=== PATIENT | male | born 1975 | race African-American/Black ===

== ENCOUNTER 2018-01-13 17:51 | Inpatient (IN) ==
[2018-01-13] MEDS ORDERED: ASPIRIN 325 MG TABLET PO STA (18:20)
[2018-01-13] MEDS ORDERED: NITROGLYCERIN 2% OINT 1 INCH/GM PACK TOP STA (18:20)
[2018-01-13] MEDS ORDERED: ALUM/MAG/SIMETH/LIDO VISC 1:1 30 ML BOTTLE PO STA (18:20)
[2018-01-13] MEDS ORDERED: MORPHINE 4 MG/1 ML VIAL IV STA (18:20)
[2018-01-13] MEDS ORDERED: ENOXAPARIN 100 MG/ML SYRINGE SUBCUT STA (18:20)
[2018-01-13] MEDS ORDERED: METOPROLOL TARTRATE 25 MG TABLET PO STA (18:20)
[2018-01-13] MEDS ORDERED: ONDANSETRON 4 MG/2 ML VIAL IV STA (18:20)
[2018-01-13 18:50] LABS: Basophils % 0.3 % (0.0-0.8); Eosinophils % 0.4 % (0.00-10.9); Hematocrit 36.3 VOL% (42.0-52.0); Hemoglobin 12.7 GM/DL (14.0-18.0); Immature Granulocytes % 0.4 %; Immature Granulocytes Absolute 0.03 #; Lymphocytes # 1.6 10*3/uL (1.4-4.0); Lymphocytes % 20.7 % (21.2-54.2); Mean Corpuscular Hemoglobin 32 PG (27-34); Mean Corpuscular Volume 90.5 FL (87-102); Mean Platelet Volume 9.6 FL (9.6-12.0); Monocytes # 0.7 10*3/uL (0.11-0.8); Monocytes % 8.7 % (1.7-12.7); Neutrophils # 5.5 10*3/uL (1.4-7.4); Neutrophils % 69.5 % (38.7-73.9); Platelet Count 231 T/CUMM (130-400); Red Blood Count 4.01 MC/CUMM (3.8-5.5); Red Cell Distribution Width 12.2 % (9.3-17.3); White Blood Count 7.9 T/CUMM (4-12)
[2018-01-13 19:00] LABS: INR 1.1
[2018-01-13 19:11] LABS: Alanine Aminotransferase 13 U/L (16-61); Albumin 2.7 G/DL (3.4-5.0); Alkaline Phosphatase 107 U/L (45-117); Aspartate Amino Transferase 16 U/L (0-37); Calcium 8.8 MG/DL (8.5-10.1); Total Protein 8.2 G/DL (6.4-8.3)
[2018-01-13 19:12] LABS: Blood Urea Nitrogen 10 MG/DL (7-18); Glucose 95 MG/DL (74-106); Osmolality,Calculated 258.8 MOS/KG (273-304); Potassium 3.5 MMOL/L (3.5-5.1); Sodium 130 MMOL/L (136-145)
[2018-01-13] MEDS ORDERED: BISACODYL 5 MG TABLET PO PRN (21:48)
[2018-01-13] MEDS ORDERED: ZALEPLON 5 MG CAPSULE PO PRN (21:48)
[2018-01-13] MEDS ORDERED: ONDANSETRON 4 MG/2 ML VIAL IV PRN (21:48)
[2018-01-13] MEDS ORDERED: NITROGLYCERIN SL 0.4 MG TABLET SL PRN (21:50)
[2018-01-13] MEDS ORDERED: ALBUTEROL/IPRATROPIUM 3 ML NEB RESP TX PRN (21:54)
[2018-01-13] MEDS ORDERED: SODIUM CHLORIDE 0.9% 1,000 ML IV SCH (22:00)
[2018-01-13] MEDS: LEVOFLOXACIN INJ 500 MG in PREMIX 1 EACH IV SCH (22:24)
[2018-01-13] MEDS: NITROGLYCERIN 2% OINT 1 INCH/GM PACK TOP SCH (22:25)
[2018-01-13] MEDS: ENOXAPARIN 40 MG/0.4 ML SYRINGE SUBCUT SCH (22:29)
[2018-01-13] MEDS: guaiFENesin 200 MG/10 ML UDCUP PO PRN (22:54)
[2018-01-14] MEDS ORDERED: FUROSEMIDE 20 MG/2 ML VIAL IV ONE (00:30)
[2018-01-14 03:09] LABS: Calcium 8.6 MG/DL (8.5-10.1); Osmolality,Calculated 263.5 MOS/KG (273-304); Risk Ratio 2.04; Thyroid Stimulating Hormone 0.73 uIU/ml (0.358-3.74); VLDL CHOLESTEROL 12.2 MG/DL
[2018-01-14] MEDS: guaiFENesin 200 MG/10 ML UDCUP PO PRN (05:54)
[2018-01-14] MEDS: NITROGLYCERIN 2% OINT 1 INCH/GM PACK TOP SCH (08:49)
[2018-01-14] MEDS: PANTOPRAZOLE 40 MG TABLET PO SCH (08:51)
[2018-01-14 09:43] LABS: HIV Antigen/Antibody Result Nonreactive (Nonreactive)
[2018-01-14] MEDS: MORPHINE 4 MG/1 ML VIAL IV PRN (14:49)
[2018-01-14] MEDS: ENOXAPARIN 40 MG/0.4 ML SYRINGE SUBCUT SCH (21:09)
[2018-01-14] MEDS: LEVOFLOXACIN INJ 500 MG in PREMIX 1 EACH IV SCH (22:36)
[2018-01-14] MEDS: ACETAMINOPHEN 325 MG TABLET PO PRN (22:38)
[2018-01-15 05:59] LABS: Basophils % 0.5 % (0.0-0.8); Eosinophils # 0.1 10*3/uL (0.0-0.87); Eosinophils % 1.4 % (0.00-10.9); Hematocrit 36.2 VOL% (42.0-52.0); Hemoglobin 12.9 GM/DL (14.0-18.0); Immature Granulocytes % 0.5 %; Immature Granulocytes Absolute 0.03 #; Lymphocytes # 1.9 10*3/uL (1.4-4.0); Lymphocytes % 32.5 % (21.2-54.2); Mean Corpuscular HGB Conc 35.6 GM/DL (32-36); Mean Corpuscular Hemoglobin 32 PG (27-34); Mean Corpuscular Volume 88.9 FL (87-102); Mean Platelet Volume 9.8 FL (9.6-12.0); Monocytes # 0.8 10*3/uL (0.11-0.8); Monocytes % 13.4 % (1.7-12.7); Neutrophils # 3.1 10*3/uL (1.4-7.4); Neutrophils % 51.7 % (38.7-73.9); Platelet Count 260 T/CUMM (130-400); Red Blood Count 4.07 MC/CUMM (3.8-5.5); Red Cell Distribution Width 12.1 % (9.3-17.3); White Blood Count 5.9 T/CUMM (4-12)
[2018-01-15 06:30] LABS: Albumin 2.4 G/DL (3.4-5.0); Bilirubin,Total 0.6 MG/DL (0.2-1.0); Calcium 8.7 MG/DL (8.5-10.1); Osmolality,Calculated 267.2 MOS/KG (273-304); Potassium 3.8 MMOL/L (3.5-5.1); Total Protein 7.4 G/DL (6.4-8.3)
[2018-01-15] MEDS: PANTOPRAZOLE 40 MG TABLET PO SCH (09:15)
[2018-01-15] MEDS: predniSONE 20 MG TABLET PO SCH (09:15)
[2018-01-15] MEDS: MORPHINE 4 MG/1 ML VIAL IV PRN (13:36)
[2018-01-15] MEDS: ENOXAPARIN 40 MG/0.4 ML SYRINGE SUBCUT SCH (20:30)
[2018-01-15] MEDS: LEVOFLOXACIN INJ 500 MG in PREMIX 1 EACH IV SCH (22:18)
[2018-01-16 05:12] LABS: Basophils % 0.4 % (0.0-0.8); Eosinophils # 0.1 10*3/uL (0.0-0.87); Eosinophils % 0.7 % (0.00-10.9); Hematocrit 34.3 VOL% (42.0-52.0); Hemoglobin 11.8 GM/DL (14.0-18.0); Immature Granulocytes % 0.6 %; Immature Granulocytes Absolute 0.04 #; Lymphocytes # 2.1 10*3/uL (1.4-4.0); Lymphocytes % 29.8 % (21.2-54.2); Mean Corpuscular HGB Conc 34.4 GM/DL (32-36); Mean Corpuscular Hemoglobin 31 PG (27-34); Mean Platelet Volume 9.7 FL (9.6-12.0); Monocytes # 0.8 10*3/uL (0.11-0.8); Monocytes % 11.2 % (1.7-12.7); Neutrophils # 4.1 10*3/uL (1.4-7.4); Neutrophils % 57.3 % (38.7-73.9); Platelet Count 251 T/CUMM (130-400); Red Blood Count 3.77 MC/CUMM (3.8-5.5); Red Cell Distribution Width 11.9 % (9.3-17.3); White Blood Count 7.2 T/CUMM (4-12)
[2018-01-16 05:39] LABS: Albumin 2.4 G/DL (3.4-5.0); Bilirubin,Total 0.7 MG/DL (0.2-1.0); Calcium 8.7 MG/DL (8.5-10.1); Osmolality,Calculated 268.2 MOS/KG (273-304); Total Protein 7.7 G/DL (6.4-8.3)
[2018-01-16] MEDS ORDERED: ENOXAPARIN 40 MG/0.4 ML SYRINGE SUBCUT SCH (09:00)
[2018-01-16] MEDS ORDERED: diphenhydrAMINE CAP 25 MG CAPSULE PO ONE (09:47)
[2018-01-16] MEDS ORDERED: POTASSIUM CHLORIDE RIDER 10 MEQ in PREMIX 1 EACH IV PRN (09:47)
[2018-01-16] MEDS ORDERED: DIAZEPAM 5 MG TABLET PO ONE (09:47)
[2018-01-16] MEDS ORDERED: MAGNESIUM SULF RIDER 2 GM in PREMIX 1 EACH IV PRN (09:47)
[2018-01-16] MEDS: PANTOPRAZOLE 40 MG TABLET PO SCH (09:48)
[2018-01-16] MEDS: MORPHINE 4 MG/1 ML VIAL IV PRN (09:49)
[2018-01-16] MEDS: predniSONE 20 MG TABLET PO SCH (09:49)
[2018-01-16] MEDS: SODIUM CHLORIDE 0.45% 1,000 ML IV SCH ×2 (11:37→23:38)
[2018-01-16] MEDS: METOPROLOL TARTRATE 5 MG/5 ML VIAL IV SCH ×2 (13:23→20:20)
[2018-01-16] MEDS ORDERED: METOPROLOL TARTRATE 5 MG/5 ML VIAL IV SCH (18:00)
[2018-01-16] MEDS: LEVOFLOXACIN INJ 500 MG in PREMIX 1 EACH IV SCH (21:13)
[2018-01-17] MEDS: METOPROLOL TARTRATE 5 MG/5 ML VIAL IV SCH ×2 (00:32→08:09)
[2018-01-17] MEDS: MORPHINE 4 MG/1 ML VIAL IV PRN (00:33)
[2018-01-17 05:49] LABS: Basophils % 0.5 % (0.0-0.8); Eosinophils # 0.1 10*3/uL (0.0-0.87); Eosinophils % 1.2 % (0.00-10.9); Hematocrit 29.7 VOL% (42.0-52.0); Hemoglobin 10.4 GM/DL (14.0-18.0); Immature Granulocytes % 0.5 %; Immature Granulocytes Absolute 0.03 #; Lymphocytes # 1.8 10*3/uL (1.4-4.0); Lymphocytes % 27.2 % (21.2-54.2); Mean Corpuscular Hemoglobin 32 PG (27-34); Mean Corpuscular Volume 90.5 FL (87-102); Mean Platelet Volume 9.6 FL (9.6-12.0); Monocytes # 0.6 10*3/uL (0.11-0.8); Monocytes % 9.2 % (1.7-12.7); Neutrophils % 61.4 % (38.7-73.9); Platelet Count 227 T/CUMM (130-400); Red Blood Count 3.28 MC/CUMM (3.8-5.5); Red Cell Distribution Width 12.3 % (9.3-17.3); White Blood Count 6.5 T/CUMM (4-12)
[2018-01-17] MEDS ORDERED: DIAZEPAM 5 MG TABLET PO ONE (06:00)
[2018-01-17] MEDS ORDERED: diphenhydrAMINE CAP 25 MG CAPSULE PO ONE (06:00)
[2018-01-17 06:15] LABS: INR 1.2; PT Patient Result 12.5 SECS
[2018-01-17 06:25] LABS: Albumin 2.4 G/DL (3.4-5.0); Bilirubin,Total 0.4 MG/DL (0.2-1.0); Calcium 8.3 MG/DL (8.5-10.1); Osmolality,Calculated 268.1 MOS/KG (273-304); Potassium 3.6 MMOL/L (3.5-5.1); Total Protein 7.4 G/DL (6.4-8.3)
[2018-01-17 06:39] LABS: Hypochromasia 1+; Microcytosis 1+
[2018-01-17 06:40] LABS: Platelet Estimate Normal
[2018-01-17] MEDS ORDERED: HEPARIN/NACL 0.9% 2 UNITS/ML 500 ML IV ONE (09:11)
[2018-01-17] MEDS ORDERED: fentaNYL 100 MCG/2 ML VIAL ONE (09:11)
[2018-01-17] MEDS ORDERED: LIDOCAINE 1%/EPI INJ 20 ML VIAL ONE (09:11)
[2018-01-17] MEDS ORDERED: MIDAZOLAM 2 MG/2 ML VIAL ONE ×2 (09:11→09:35)
[2018-01-17] MEDS: predniSONE 20 MG TABLET PO SCH (10:36)
[2018-01-17] MEDS: PANTOPRAZOLE 40 MG TABLET PO SCH (10:37)
[2018-01-17 10:46] LABS: Total Protein 7.3 G/DL (6.4-8.3)
[2018-01-17 11:34] LABS: Basophils % 0.2 % (0.0-0.8); Eosinophils % 0.7 % (0.00-10.9); Hematocrit 32.7 VOL% (42.0-52.0); Hemoglobin 11.4 GM/DL (14.0-18.0); Immature Granulocytes % 0.3 %; Immature Granulocytes Absolute 0.02 #; Lymphocytes # 1.2 10*3/uL (1.4-4.0); Lymphocytes % 21.3 % (21.2-54.2); Mean Corpuscular HGB Conc 34.9 GM/DL (32-36); Mean Corpuscular Hemoglobin 32 PG (27-34); Mean Corpuscular Volume 91.6 FL (87-102); Mean Platelet Volume 9.6 FL (9.6-12.0); Monocytes # 0.4 10*3/uL (0.11-0.8); Monocytes % 6.6 % (1.7-12.7); Neutrophils # 4.1 10*3/uL (1.4-7.4); Neutrophils % 70.9 % (38.7-73.9); Platelet Count 218 T/CUMM (130-400); Red Blood Count 3.57 MC/CUMM (3.8-5.5); Red Cell Distribution Width 12.2 % (9.3-17.3); White Blood Count 5.7 T/CUMM (4-12)
[2018-01-17] MEDS ORDERED: FUROSEMIDE 20 MG/2 ML VIAL IV ONE (15:32)
[2018-01-17] MEDS: LEVOFLOXACIN INJ 500 MG in PREMIX 1 EACH IV SCH (21:16)
[2018-01-18 05:17] LABS: Basophils % 0.2 % (0.0-0.8); Eosinophils # 0.1 10*3/uL (0.0-0.87); Eosinophils % 0.8 % (0.00-10.9); Hematocrit 33.1 VOL% (42.0-52.0); Hemoglobin 11.8 GM/DL (14.0-18.0); Immature Granulocytes % 1.4 %; Immature Granulocytes Absolute 0.12 #; Lymphocytes # 1.5 10*3/uL (1.4-4.0); Lymphocytes % 17.5 % (21.2-54.2); Mean Corpuscular HGB Conc 35.6 GM/DL (32-36); Mean Corpuscular Hemoglobin 32 PG (27-34); Mean Corpuscular Volume 89.7 FL (87-102); Mean Platelet Volume 9.1 FL (9.6-12.0); Monocytes # 0.6 10*3/uL (0.11-0.8); Monocytes % 6.9 % (1.7-12.7); Neutrophils # 6.3 10*3/uL (1.4-7.4); Neutrophils % 73.2 % (38.7-73.9); Platelet Count 198 T/CUMM (130-400); Red Blood Count 3.69 MC/CUMM (3.8-5.5); White Blood Count 8.7 T/CUMM (4-12)
[2018-01-18 05:41] LABS: Osmolality,Calculated 273.7 MOS/KG (273-304); Potassium 3.5 MMOL/L (3.5-5.1)
[2018-01-18] MEDS: PANTOPRAZOLE 40 MG TABLET PO SCH (08:55)
[2018-01-18] MEDS: predniSONE 20 MG TABLET PO SCH (08:55)
[2018-01-18] MEDS: LEVOFLOXACIN INJ 500 MG in PREMIX 1 EACH IV SCH (22:31)
[2018-01-19 05:12] LABS: Basophils % 0.3 % (0.0-0.8); Eosinophils # 0.1 10*3/uL (0.0-0.87); Eosinophils % 1.6 % (0.00-10.9); Hematocrit 32.6 VOL% (42.0-52.0); Hemoglobin 11.8 GM/DL (14.0-18.0); Immature Granulocytes % 0.4 %; Immature Granulocytes Absolute 0.04 #; Lymphocytes % 22.1 % (21.2-54.2); Mean Corpuscular HGB Conc 36.2 GM/DL (32-36); Mean Corpuscular Hemoglobin 32 PG (27-34); Mean Corpuscular Volume 87.6 FL (87-102); Mean Platelet Volume 9.7 FL (9.6-12.0); Monocytes # 0.7 10*3/uL (0.11-0.8); Monocytes % 7.4 % (1.7-12.7); Neutrophils # 6.1 10*3/uL (1.4-7.4); Neutrophils % 68.2 % (38.7-73.9); Platelet Count 191 T/CUMM (130-400); Red Blood Count 3.72 MC/CUMM (3.8-5.5); Red Cell Distribution Width 12.6 % (9.3-17.3)
[2018-01-19 05:24] LABS: Calcium 8.2 MG/DL (8.5-10.1); Osmolality,Calculated 273.7 MOS/KG (273-304); Potassium 3.3 MMOL/L (3.5-5.1)
[2018-01-19] MEDS ORDERED: POTASSIUM CHLORIDE 20 MEQ TABLET PO ONE (07:41)
[2018-01-19] MEDS: ACETAMINOPHEN 325 MG TABLET PO PRN (09:56)
[2018-01-19] MEDS: PANTOPRAZOLE 40 MG TABLET PO SCH (09:57)
[2018-01-19] MEDS: predniSONE 20 MG TABLET PO SCH (09:57)
[2018-01-19] MEDS ORDERED: POTASSIUM CHLORIDE 20 MEQ TABLET PO PRN (14:07)
[2018-01-19] MEDS: NICOTINE 21 MG/24 HR PATCH TRANSDERM PRN (21:40)
[2018-01-19] MEDS: LEVOFLOXACIN INJ 500 MG in PREMIX 1 EACH IV SCH (21:42)
[2018-01-20] MEDS: MORPHINE 4 MG/1 ML VIAL IV PRN ×2 (04:18→20:36)
[2018-01-20 05:48] LABS: Basophils % 0.2 % (0.0-0.8); Eosinophils # 0.1 10*3/uL (0.0-0.87); Eosinophils % 1.2 % (0.00-10.9); Hematocrit 37.3 VOL% (42.0-52.0); Hemoglobin 13.2 GM/DL (14.0-18.0); Immature Granulocytes % 1.2 %; Lymphocytes # 1.8 10*3/uL (1.4-4.0); Lymphocytes % 21.6 % (21.2-54.2); Mean Corpuscular HGB Conc 35.4 GM/DL (32-36); Mean Corpuscular Hemoglobin 32 PG (27-34); Mean Corpuscular Volume 90.3 FL (87-102); Mean Platelet Volume 10.1 FL (9.6-12.0); Monocytes # 0.7 10*3/uL (0.11-0.8); Monocytes % 7.8 % (1.7-12.7); NRBC # 0.04 10*3/uL; Neutrophils # 5.7 10*3/uL (1.4-7.4); Platelet Count 128 T/CUMM (130-400); Red Blood Count 4.13 MC/CUMM (3.8-5.5); Red Cell Distribution Width 12.9 % (9.3-17.3); White Blood Count 8.3 T/CUMM (4-12)
[2018-01-20] MEDS: predniSONE 20 MG TABLET PO SCH (08:12)
[2018-01-20] MEDS: PANTOPRAZOLE 40 MG TABLET PO SCH (08:12)
[2018-01-20 08:36] LABS: Calcium 8.9 MG/DL (8.5-10.1); Potassium 3.9 MMOL/L (3.5-5.1)
[2018-01-20 18:21] LABS: QuantiFERON-Tb Gold Pl Indeterminate (Negative); TB1 Ag minus Nil Result -0.04 IU/mL; TB2 Ag Minus Result -0.02 IU/mL
[2018-01-20] MEDS: ENOXAPARIN 60 MG/0.6 ML SYRINGE SUBCUT SCH (20:38)
[2018-01-20] MEDS: NICOTINE 21 MG/24 HR PATCH TRANSDERM PRN (20:38)
[2018-01-20] MEDS: LEVOFLOXACIN INJ 500 MG in PREMIX 1 EACH IV SCH (22:24)
[2018-01-20] MEDS ORDERED: MORPHINE 4 MG/1 ML VIAL IV ONE (23:30)
[2018-01-21] MEDS ORDERED: KETOROLAC 30 MG/1 ML VIAL IV ONE (01:00)
[2018-01-21 05:49] LABS: Basophils % 0.4 % (0.0-0.8); Eosinophils % 0.4 % (0.00-10.9); Hematocrit 33.8 VOL% (42.0-52.0); Hemoglobin 11.7 GM/DL (14.0-18.0); Immature Granulocytes % 0.4 %; Immature Granulocytes Absolute 0.04 #; Lymphocytes # 1.7 10*3/uL (1.4-4.0); Lymphocytes % 17.4 % (21.2-54.2); Mean Corpuscular HGB Conc 34.6 GM/DL (32-36); Mean Corpuscular Hemoglobin 31 PG (27-34); Mean Corpuscular Volume 89.7 FL (87-102); Mean Platelet Volume 9.8 FL (9.6-12.0); Monocytes # 0.7 10*3/uL (0.11-0.8); Monocytes % 7.6 % (1.7-12.7); Neutrophils # 7.2 10*3/uL (1.4-7.4); Neutrophils % 73.8 % (38.7-73.9); Platelet Count 157 T/CUMM (130-400); Red Blood Count 3.77 MC/CUMM (3.8-5.5); Red Cell Distribution Width 12.4 % (9.3-17.3); White Blood Count 9.7 T/CUMM (4-12)
[2018-01-21 06:30] LABS: Calcium 8.4 MG/DL (8.5-10.1); Potassium 4.2 MMOL/L (3.5-5.1)
[2018-01-21] MEDS: PANTOPRAZOLE 40 MG TABLET PO SCH (08:54)
[2018-01-21] MEDS: ENOXAPARIN 60 MG/0.6 ML SYRINGE SUBCUT SCH (08:54)
[2018-01-21] MEDS: predniSONE 20 MG TABLET PO SCH (08:54)
[2018-01-21 16:30] LABS: ABG Base Excess 2.6 MMOL/L (-2.5-2.5); ABG HCO3 25.4 MMOL/L (20-26); ABG Oxygen Saturation 93.9 % (95-100); ABG PCO2 33.6 MM HG (35-48); ABG PH 7.497 (7.35-7.45); ABG PO2 73.4 MM HG (80-95); ABG TCO2 26.5 MMOL/L (23-27)
[2018-01-21] MEDS: APIXABAN 5 MG TABLET PO SCH (20:49)
[2018-01-22] MEDS: oxyCODONE/ACETAMINOPHEN 5-325 MG TABLET PO PRN ×3 (00:11→20:29)
[2018-01-22 03:51] LABS: Calcium 8.8 MG/DL (8.5-10.1); Osmolality,Calculated 267.4 MOS/KG (273-304); Potassium 3.7 MMOL/L (3.5-5.1)
[2018-01-22] MEDS: PANTOPRAZOLE 40 MG TABLET PO SCH (09:01)
[2018-01-22] MEDS: APIXABAN 5 MG TABLET PO SCH ×2 (09:01→20:29)
[2018-01-22] MEDS: predniSONE 20 MG TABLET PO SCH (09:01)
[2018-01-22] MEDS: LEVOFLOXACIN 750 MG TABLET PO SCH (09:01)
[2018-01-23] MEDS: oxyCODONE/ACETAMINOPHEN 5-325 MG TABLET PO PRN (02:50)
[2018-01-23 06:30] LABS: Cancer Antigen 19-9 2.4 U/ML (0-37); Carcinoembryonic Antigen 2.4 NG/ML (0.0-5.0)
[2018-01-23] MEDS: APIXABAN 5 MG TABLET PO SCH (08:11)
[2018-01-23] MEDS: predniSONE 20 MG TABLET PO SCH (08:11)
[2018-01-23] MEDS: PANTOPRAZOLE 40 MG TABLET PO SCH (08:11)
[2018-01-23] MEDS: LEVOFLOXACIN 750 MG TABLET PO SCH (08:11)
[2018-01-23] MEDS ORDERED: predniSONE 10 MG TABLET PO SCH (09:07)
[2018-01-23] MEDS ORDERED: KETOROLAC 10 MG TABLET PO ONE (09:07)
[2018-01-23 12:12] VITALS: BP 104/74
[2018-01-24 09:05] LABS: Immuno Free Light Chain Kappa 4.5 MG/DL (0.33-1.94); Immuno Free Light Chain Lambda 4.27 MG/DL (0.57-2.63); Immuno Free Light Chain Ratio 1.05 MG/DL (0.26-1.65)
[2018-01-25 08:31] LABS: Total Protein (Chem) 8.2 G/DL (6.4-8.3)
[2018-01-25 11:04] LABS: Albumin (SPE) 3.1 G/DL (3.2-5.3); Albumin (SPE) Rel % 37.3 %; Alpha 1 (SPE) 0.5 G/DL (0.1-0.4); Alpha 1 (SPE) Rel % 6.3 %; Alpha 2 (SPE) 1.3 G/DL (0.4-1.0); Alpha 2 (SPE) Rel % 16.1 %; Beta (SPE) 1.3 G/DL (0.5-1.1); Beta (SPE) Rel % 16.2 %
[2018-01-25 11:05] LABS: Gamma (SPE) Rel % 24.1 %
== END 2018-01-23 14:10 | disposition home or self-care (01) | DRG 180 ==
LOC: N.ED 17:51 → N.EDINP 17:51 → N.4E 21:26 → SUATTDRO 01-14 11:42 → N.TELEN 01-17 10:14
PROVIDERS: ADMIT Internal Medicine; ATTEND Hospitalist

== ENCOUNTER 2018-02-11 20:15 | Inpatient (IN) ==
[2018-02-11] MEDS ORDERED: ASPIRIN 325 MG TABLET PO STA (21:01)
[2018-02-11] MEDS ORDERED: MORPHINE 4 MG/1 ML VIAL IV STA ×2 (21:01→22:06)
[2018-02-11] MEDS ORDERED: SODIUM CHLORIDE 0.9% 1,000 ML IV STA (21:03)
[2018-02-11 21:26] LABS: Basophils % 0.4 % (0.0-0.8); Eosinophils # 0.1 10*3/uL (0.0-0.87); Eosinophils % 0.8 % (0.00-10.9); Hemoglobin 14.1 GM/DL (14.0-18.0); Immature Granulocytes % 0.3 %; Immature Granulocytes Absolute 0.03 #; Lymphocytes # 1.6 10*3/uL (1.4-4.0); Lymphocytes % 15.4 % (21.2-54.2); Mean Corpuscular HGB Conc 34.4 GM/DL (32-36); Mean Corpuscular Hemoglobin 30 PG (27-34); Mean Corpuscular Volume 86.5 FL (87-102); Mean Platelet Volume 10.6 FL (9.6-12.0); Monocytes # 0.8 10*3/uL (0.11-0.8); Monocytes % 7.9 % (1.7-12.7); Neutrophils # 7.9 10*3/uL (1.4-7.4); Neutrophils % 75.2 % (38.7-73.9); Red Blood Count 4.74 MC/CUMM (3.8-5.5); Red Cell Distribution Width 13.5 % (9.3-17.3); White Blood Count 10.4 T/CUMM (4-12)
[2018-02-11 21:27] LABS: Platelet Count 85 T/CUMM (130-400)
[2018-02-11 21:34] LABS: INR 1.2; PT Patient Result 12.8 SECS; Partial Thromboplastin Time 27.6 SECS (0-40)
[2018-02-11 21:43] LABS: Albumin 2.8 G/DL (3.4-5.0); Bilirubin,Total 1.2 MG/DL (0.2-1.0); Calcium 9.5 MG/DL (8.5-10.1); Osmolality,Calculated 268.2 MOS/KG (273-304); Potassium 4.6 MMOL/L (3.5-5.1); Total Protein 8.6 G/DL (6.4-8.3)
[2018-02-11 21:54] LABS: Platelet Estimate Decreased
[2018-02-11] MEDS ORDERED: NITROGLYCERIN SL 0.4 MG TABLET SL STA (22:03)
[2018-02-11] MEDS ORDERED: NITROGLYCERIN SL 0.4 MG TABLET SL ONE (22:04)
[2018-02-11] MEDS ORDERED: TICAGRELOR 90 MG TABLET ONE (22:04)
[2018-02-11] MEDS ORDERED: ONDANSETRON 4 MG/2 ML VIAL ONE (22:04)
[2018-02-11] MEDS ORDERED: ONDANSETRON 4 MG/2 ML VIAL IV ONE (22:06)
[2018-02-11] MEDS ORDERED: TICAGRELOR 90 MG TABLET PO ONE (22:06)
[2018-02-11] MEDS ORDERED: ACETAMINOPHEN 325 MG TABLET PO PRN (22:30)
[2018-02-11] MEDS ORDERED: ZALEPLON 5 MG CAPSULE PO PRN (22:30)
[2018-02-11] MEDS ORDERED: ONDANSETRON 4 MG/2 ML VIAL IV PRN (22:30)
[2018-02-11] MEDS ORDERED: MAGNESIUM SULF RIDER 2 GM in PREMIX 1 EACH IV PRN (22:30)
[2018-02-11] MEDS ORDERED: MAGNESIUM SULF RIDER 4 GM in PREMIX 1 EACH IV PRN (22:30)
[2018-02-11] MEDS ORDERED: HYDROmorphone 2 MG/1 ML VIAL IV PRN (22:41)
[2018-02-12] MEDS: SODIUM CHLORIDE 0.9% 1,000 ML IV SCH ×2 (00:50→18:01)
[2018-02-12] MEDS: NITROGLYCERIN 2% OINT 1 INCH/GM PACK TOP SCH ×4 (00:50→18:00)
[2018-02-12] MEDS: APIXABAN 5 MG TABLET PO SCH ×2 (08:30→21:50)
[2018-02-12] MEDS: METOPROLOL TARTRATE 25 MG TABLET PO SCH ×2 (08:30→21:50)
[2018-02-13] MEDS: NITROGLYCERIN 2% OINT 1 INCH/GM PACK TOP SCH ×4 (00:40→18:01)
[2018-02-13] MEDS: APIXABAN 5 MG TABLET PO SCH ×2 (08:43→21:22)
[2018-02-13] MEDS: DOCUSATE SODIUM 100 MG CAPSULE PO PRN (08:43)
[2018-02-13] MEDS: METOPROLOL TARTRATE 25 MG TABLET PO SCH ×2 (08:43→21:22)
[2018-02-13] MEDS: SODIUM CHLORIDE 0.9% 1,000 ML IV SCH (13:55)
[2018-02-14] MEDS: NITROGLYCERIN 2% OINT 1 INCH/GM PACK TOP SCH ×3 (00:50→12:23)
[2018-02-14] MEDS: APIXABAN 5 MG TABLET PO SCH ×2 (08:46→21:12)
[2018-02-14] MEDS: METOPROLOL TARTRATE 25 MG TABLET PO SCH ×2 (08:46→21:11)
[2018-02-14] MEDS: SODIUM CHLORIDE 0.9% 1,000 ML IV SCH ×2 (08:47→10:15)
[2018-02-14] MEDS: ISOSORBIDE MONONITRATE 30 MG TABLET PO SCH (14:14)
[2018-02-15] MEDS: SODIUM CHLORIDE 0.9% 1,000 ML IV SCH ×2 (04:24→06:13)
[2018-02-15 07:22] LABS: Calcium 8.2 MG/DL (8.5-10.1); Osmolality,Calculated 275.5 MOS/KG (273-304); Potassium 4.3 MMOL/L (3.5-5.1)
[2018-02-15 07:40] LABS: Basophils % 0.5 % (0.0-0.8); Eosinophils # 0.2 10*3/uL (0.0-0.87); Eosinophils % 3.1 % (0.00-10.9); Hematocrit 33.2 VOL% (42.0-52.0); Hemoglobin 11.5 GM/DL (14.0-18.0); Immature Granulocytes % 0.5 %; Immature Granulocytes Absolute 0.04 #; Lymphocytes # 1.7 10*3/uL (1.4-4.0); Lymphocytes % 23.2 % (21.2-54.2); Mean Corpuscular HGB Conc 34.6 GM/DL (32-36); Mean Corpuscular Hemoglobin 30 PG (27-34); Mean Corpuscular Volume 86.2 FL (87-102); Mean Platelet Volume 9.9 FL (9.6-12.0); Monocytes # 0.6 10*3/uL (0.11-0.8); Monocytes % 7.7 % (1.7-12.7); Neutrophils # 4.8 10*3/uL (1.4-7.4); Red Blood Count 3.85 MC/CUMM (3.8-5.5); Red Cell Distribution Width 13.9 % (9.3-17.3); White Blood Count 7.4 T/CUMM (4-12)
[2018-02-15 07:41] LABS: Platelet Count 86 T/CUMM (130-400)
[2018-02-15] MEDS ORDERED: METOPROLOL SUCCINATE XL 25 MG TABLET PO SCH (09:00)
[2018-02-15] MEDS: APIXABAN 5 MG TABLET PO SCH ×2 (09:02→21:27)
[2018-02-15] MEDS: ISOSORBIDE MONONITRATE 30 MG TABLET PO SCH (09:03)
[2018-02-15 10:29] LABS: Hypochromasia 2+; Polychromasia Slight
[2018-02-15] MEDS: ASPIRIN EC 81 MG TABLET PO SCH (12:11)
[2018-02-16] MEDS: SODIUM CHLORIDE 0.9% 1,000 ML IV SCH ×3 (00:41→14:42)
[2018-02-16] MEDS: DOCUSATE SODIUM 100 MG CAPSULE PO PRN (09:21)
[2018-02-16] MEDS: METOPROLOL SUCCINATE XL 50 MG TABLET PO SCH (09:21)
[2018-02-16] MEDS: APIXABAN 5 MG TABLET PO SCH ×2 (09:21→21:00)
[2018-02-16] MEDS: ISOSORBIDE MONONITRATE 30 MG TABLET PO SCH (09:21)
[2018-02-16] MEDS: ASPIRIN EC 81 MG TABLET PO SCH (09:22)
[2018-02-17 08:19] VITALS: BP 138/102
[2018-02-17] MEDS: ASPIRIN EC 81 MG TABLET PO SCH (08:27)
[2018-02-17] MEDS: DOCUSATE SODIUM 100 MG CAPSULE PO PRN (08:28)
[2018-02-17] MEDS: METOPROLOL SUCCINATE XL 50 MG TABLET PO SCH (08:28)
[2018-02-17] MEDS: ISOSORBIDE MONONITRATE 30 MG TABLET PO SCH (08:28)
[2018-02-17] MEDS: APIXABAN 5 MG TABLET PO SCH (08:28)
[2018-02-17] MEDS: SODIUM CHLORIDE 0.9% 1,000 ML IV SCH (08:29)
== END 2018-02-17 15:15 | disposition home or self-care (01) | DRG 180 ==
LOC: EDUNIT# → EDBD → N.EDINP 20:15 → N.ED 20:15 → N.TELEN 23:27
PROVIDERS: ADMIT Internal Medicine Interventional Cardiology; ATTEND Internal Medicine Interventional Cardiology